=== PATIENT | female | born 1985 | race Caucasian/White ===

== ENCOUNTER 2018-01-16 17:25 | Emergency (ER) | payer OTHER ==
[~2018-01-16] VITALS: Ht 172.7 cm; Wt 77.1 kg
[~2018-01-16 17:25] MED LIST: ACEBUTCAFT PO; ALBU90OI INH; ALBU90OI61 INH; BC PILL; BENADRYL25 MG PO; CODACEE120 PO; Crutch1 EACH MISC; HYDACE5 PO; HYDPAM50 PO; IBUP400 PO; IBUP800 PO; LEVSOD75 PO; MECL12.5; MEDR150I; METPRE4DP PO; MULVITMIND PO; Mucinex600 MG PO; NICO21TP TOP; NITR100CA PO; NORPLANT; ORTHO EVRA; PENVK500 PO; PRED10 PO; PRED20 PO; PROC10 PO; PROP10 PO; Prednisone10 MG PO; Prednisone20 MG PO; RXCODACET PO; RXHYDACE PO; TRAM50; Verotin-Gr Cap1 EACH PO; Zovirax Cream 5%2 GM TOP; Zovirax400 MG PO
[2018-01-16] MEDS ORDERED: Cleocin HCl150 MG PO (19:22)
[2018-01-16] MEDS ORDERED: Tylenol325 MG PO (19:22)
== END 2018-01-16 19:40 | disposition home or self-care (01) ==
LOC: ER 17:25
DX: N61.0 Mastitis without abscess (principal); F32.9 Major depressive disorder, single episode, unspecified; Z86.14 Personal history of Methicillin resistant Staphylococcus aureus infection; Z88.2 Allergy status to sulfonamides; Z88.6 Allergy status to analgesic agent; Z88.8 Allergy status to other drugs, medicaments and biological substances; Z79.899 Other long term (current) drug therapy
CPT/HCPCS: 99283

== ENCOUNTER → 2018-03-09 | Outpatient (CLI) | payer OTHER ==
[~2018-03-09] MED LIST changes: +Cleocin HCl150 MG PO; +Tylenol325 MG PO
== END ==
LOC: LAB 17:12 → LAB SHORT 17:12
DX: O92.12 Cracked nipple associated with the puerperium (principal)
CPT/HCPCS: 87070; 87077; 87147; 87186; 87205

== ENCOUNTER → 2020-04-04 | Outpatient (CLI) | payer OTHER ==
[2020-04-12 17:09] LABS: HCV LOG10 5.438 (.); HEPATITIS C QUANTITATION 274000 IU/mL (.)
== END ==
LOC: LAB 15:38 → LAB SHORT 15:38
PROVIDERS: Registered Nurse Community Health
DX: Z09 Encounter for follow-up examination after completed treatment for conditions other than malignant neoplasm (principal); Z86.19 Personal history of other infectious and parasitic diseases
CPT/HCPCS: 87522

== ENCOUNTER → 2020-08-14 | Outpatient (CLI) | payer OTHER | LOC: LAB 19:43 → LAB SHORT 19:43 | DX: Z34.80 Encounter for supervision of other normal pregnancy, unspecified trimester (principal) | CPT/HCPCS: 87081; 87653 ==

== ENCOUNTER 2020-09-13 20:29 | Inpatient (IN) | payer OTHER ==
[~2020-09-13] VITALS: Ht 172.7 cm; Wt 86.8 kg
[2020-09-13 21:17] LABS: BASOPHILS ABSOLUTE AUTO 0.03 K/mm3 (0.00-0.23); BASOPHILS PERCENT AUTO 0 % (0-2); EOSINOPHILS ABSOLUTE AUTO 0.03 K/mm3 (0.00-0.68); EOSINOPHILS PERCENT AUTO 0 % (0-6); Hematocrit 39.2 % (33.0-51.0); Hemoglobin 13.4 g/dL (11.5-16.0); IMMATURE GRAN ABSOLUTE AUTO 0.04 K/mm3 (0.00-0.10); IMMATURE GRAN PERCENT AUTO 0 % (0-1); LYMPHOCYTES ABSOLUTE AUTO 3.57 K/mm3 (0.84-5.20); LYMPHOCYTES PERCENT AUTO 33 % (21-46); MONOCYTES ABSOLUTE AUTO 0.78 K/mm3 (0.16-1.47); MONOCYTES PERCENT AUTO 7 % (4-13); Mean Corpuscular HGB 29.1 pg (26.0-34.0); Mean Corpuscular HGB Conc 34.2 g/dL (31.5-36.5); Mean Corpuscular Volume 85 fL (80-100); Mean Platelet Volume 10.7 fL (9.1-12.4); NEUTROPHILS ABSOLUTE AUTO 6.28 K/mm3 (1.96-9.15); NEUTROPHILS PERCENT AUTO 58 % (41-73); Platelet Count 303 K/mm3 (150-400); RDW Coefficient Variation 12.4 % (11.7-14.2); RDW Standard Deviation 38.5 fL (35.1-46.3); Red Blood Cell Count 4.61 M/mm3 (3.80-5.20); White Blood Cell Count 10.73 K/mm3 (4.00-11.30)
[2020-09-13] MEDS ORDERED: ACYC200 PO (22:56)
[2020-09-13] MEDS ORDERED: BUSP10 PO (22:57)
[2020-09-14 04:41] LABS: Hematocrit 37.9 % (33.0-51.0); Hemoglobin 12.8 g/dL (11.5-16.0); Mean Corpuscular HGB 29.5 pg (26.0-34.0); Mean Corpuscular HGB Conc 33.8 g/dL (31.5-36.5); Mean Corpuscular Volume 87 fL (80-100); Mean Platelet Volume 11.1 fL (9.1-12.4); Platelet Count 280 K/mm3 (150-400); RDW Coefficient Variation 12.5 % (11.7-14.2); RDW Standard Deviation 39.7 fL (35.1-46.3); Red Blood Cell Count 4.34 M/mm3 (3.80-5.20)
[2020-09-14] MEDS ORDERED: DOCU100 PO (18:54)
[2020-09-14] MEDS ORDERED: IBU800 MG PO (18:55)
[2020-09-14] MEDS ORDERED: METERG.2 PO (18:55)
--- NOTE | 2020-09-14 19:11 | NUR ---
REPORT TO VEENA MARISCAL
--- NOTE | 2020-09-15 12:12 | NUR ---
DISCHARGE 1145 DC HOME STABLE. CARING FOR SELF AND BABY INDEPENDANTLY. VSS. LOCHIA SCANT. NO QUESTIONS OR CONCERNS. VERBALIZES UNDERSTANDING OF DC INSTRUCTIONS AND FOLLOW UP APPOINTMENTS.
== END 2020-09-15 11:40 | disposition home or self-care (01) | DRG 806 ==
LOC: OBS 20:29 → BC 20:35 → OBS 20:46 → BC 20:48
PROVIDERS: ADMIT Family Medicine
PROC: 10E0XZZ Delivery of Products of Conception, External Approach (ICD-10-PCS; principal; 2020-09-13)
PROC: 10D17Z9 Manual Extraction of Products of Conception, Retained, Via Natural or Artificial Opening (ICD-10-PCS; 2020-09-13)
PROC: 0KQM0ZZ Repair Perineum Muscle, Open Approach (ICD-10-PCS; 2020-09-13)
DX: O48.0 Post-term pregnancy (principal); O98.42 Viral hepatitis complicating childbirth; Z37.0 Single live birth; O72.0 Third-stage hemorrhage; B19.20 Unspecified viral hepatitis C without hepatic coma; Z3A.40 40 weeks gestation of pregnancy; O69.89X0 Labor and delivery complicated by other cord complications, not applicable or unspecified
CPT/HCPCS: 36415; 85025; 85027; 86850; 86900; 86901; 90471; A9270; J0290; J2001; J2590; J3010; J7120

== ENCOUNTER → 2021-03-13 | Outpatient (CLI) | payer OTHER ==
[~2021-03-13] MED LIST changes: +ACYC200 PO; +BUSP10 PO; +DOCU100 PO; +IBU800 MG PO; +METERG.2 PO
[2021-03-18 14:10] LABS: HPV 16 Negative (Negative); HPV 18 Negative (Negative); HPV OTHER HR TYPES Negative (Negative)
== END | disposition home or self-care (01) ==
LOC: LAB SHORT 16:40
PROVIDERS: Nurse Practitioner
DX: Z12.4 Encounter for screening for malignant neoplasm of cervix (principal); N89.8 Other specified noninflammatory disorders of vagina
CPT/HCPCS: 87070; 87205; 87624; G0123